=== PATIENT | female | born 1975 | race Caucasian/White ===

== ENCOUNTER → 2023-04-01 | Outpatient (CLI) | payer OTHER ==
--- NOTE | 2023-04-01 11:16 | XR ---
EXAMINATION TYPE: XR chest 2V DATE OF EXAM: 04/01/2023 COMPARISON: NONE TECHNIQUE: PA and lateral views submitted. HISTORY: Preemployment FINDINGS: The lungs are clear and there is no pneumothorax, pleural effusion, or focal pneumonia. Heart size normal and no overt failure. Osseous structures intact. Hyperinflation suggests COPD. Biapical pleura l thickening. IMPRESSION: 1. No acute process.
== END | disposition home or self-care (01) ==
LOC: RADXRMAIN 10:52
DX: Z02.1 Encounter for pre-employment examination (principal)
CPT/HCPCS: 71046